=== PATIENT | male | born 1940 | race Caucasian/White ===

== ENCOUNTER 2019-07-30 21:08 | Observation (INO) ==
[2019-07-30 21:43] LABS: Basophils # 0.1 10*3/uL (0.0-0.2); Basophils % 0.6 % (0.0-0.8); Eosinophils # 0.3 10*3/uL (0.0-0.87); Eosinophils % 3.3 % (0.00-10.9); Hematocrit 43.2 VOL% (42.0-52.0); Hemoglobin 14.1 GM/DL (14.0-18.0); Immature Granulocytes % 0.3 %; Immature Granulocytes Absolute 0.02 #; Lymphocytes # 2.9 10*3/uL (1.4-4.0); Lymphocytes % 37.4 % (21.2-54.2); Mean Corpuscular HGB Conc 32.6 GM/DL (32-36); Mean Corpuscular Volume 97.7 FL (87-102); Mean Platelet Volume 11.3 FL (9.6-12.0); Monocytes % 9.3 % (1.7-12.7); Neutrophils % 49.1 % (38.7-73.9); Platelet Count 201 T/CUMM (130-400); Red Blood Count 4.42 MC/CUMM (3.8-5.5); Red Cell Distribution Width 12.1 % (9.3-17.3); White Blood Count 7.9 T/CUMM (4-12)
[2019-07-30 21:53] LABS: PT Patient Result 10.9 SECS (9.6-12.2); Partial Thromboplastin Time 26.5 SECS (20.8-36.0)
[2019-07-30 22:02] LABS: Alanine Aminotransferase 20 U/L (16-61); Albumin 3.8 G/DL (3.4-5.0); Alkaline Phosphatase 67 U/L (45-117); Aspartate Amino Transferase 12 U/L (0-37); Blood Urea Nitrogen 23 MG/DL (7-18); Calcium 8.6 MG/DL (8.5-10.1); Estimated Glom Filtration Rate 65 ML/MIN; Glucose 105 MG/DL (74-106); Osmolality,Calculated 280.5 MOS/KG (273-304); Total Protein 6.9 G/DL (6.4-8.3)
[2019-07-30] MEDS ORDERED: ASPIRIN CHEW 81 MG TABLET PO STA (22:52)
[2019-07-30] MEDS ORDERED: ZALEPLON 5 MG CAPSULE PO PRN (22:59)
[2019-07-30] MEDS ORDERED: diphenhydrAMINE CAP 25 MG CAPSULE PO PRN (22:59)
[2019-07-30] MEDS ORDERED: guaiFENesin/DM ER 600-30 MG TABLET PO PRN (22:59)
[2019-07-30] MEDS ORDERED: DOCUSATE SODIUM 100 MG CAPSULE PO PRN (22:59)
[2019-07-30] MEDS ORDERED: ONDANSETRON 4 MG/2 ML VIAL IV PRN (22:59)
[2019-07-30] MEDS ORDERED: ACETAMINOPHEN 325 MG TABLET PO PRN (22:59)
[2019-07-30] MEDS ORDERED: hydrALAZINE 20 MG/1 ML VIAL IV PRN (23:04)
[2019-07-31] MEDS: amLODIPine 5 MG TABLET PO SCH ×2 (00:45→08:02)
[2019-07-31 05:08] LABS: Apearance,Urine CLEAR (Clear); Bilirubin,Urine Negative (Negative); Blood, Urine Negative (Negative); Glucose,Urine (UA) Negative (Negative); Ketones,Urine Negative (Negative); Mucus,Urine Occasional /LPF (Occasional); Nitrite,Urine Negative (Negative); Protein,Urine Negative; RBC,Urine 1 /HPF (0-4); Urine Color Yellow (Yellow); Urine Specific Gravity 1.011 (1.001-1.035); Urine Urobilinogen < 2.0 EU/DL (0.2-1.0)
[2019-07-31 05:22] LABS: Barbiturates Screen,Urine Negative (Negative); Benzodiazepines Screen,Urine Negative (Negative); Cannabinoid Screen,Urine Negative (Negative); Opiate Screen,Urine Negative (Negative); Phencyclidine Screen,Urine Negative (Negative)
[2019-07-31 05:32] LABS: Basophils # 0.1 10*3/uL (0.0-0.2); Basophils % 0.8 % (0.0-0.8); Eosinophils # 0.3 10*3/uL (0.0-0.87); Eosinophils % 5.3 % (0.00-10.9); Hematocrit 38.3 VOL% (42.0-52.0); Hemoglobin 12.9 GM/DL (14.0-18.0); Immature Granulocytes % 0.2 %; Immature Granulocytes Absolute 0.01 #; Lymphocytes # 2.3 10*3/uL (1.4-4.0); Lymphocytes % 36.4 % (21.2-54.2); Mean Corpuscular HGB Conc 33.7 GM/DL (32-36); Mean Corpuscular Volume 94.8 FL (87-102); Mean Platelet Volume 12.5 FL (9.6-12.0); Monocytes % 9.3 % (1.7-12.7); Platelet Count 192 T/CUMM (130-400); Red Blood Count 4.04 MC/CUMM (3.8-5.5); White Blood Count 6.2 T/CUMM (4-12)
[2019-07-31 06:01] LABS: Albumin 3.4 G/DL (3.4-5.0); Bilirubin,Total 0.5 MG/DL (0.2-1.0); Calcium 8.2 MG/DL (8.5-10.1); Osmolality,Calculated 283.1 MOS/KG (273-304); Risk Ratio 2.4; Total Protein 6.2 G/DL (6.4-8.3); VLDL CHOLESTEROL 9.8 MG/DL
[2019-07-31] MEDS ORDERED: ENOXAPARIN 40 MG/0.4 ML SYRINGE SUBCUT SCH (08:00)
[2019-07-31] MEDS ORDERED: PANTOPRAZOLE 40 MG TABLET PO SCH (09:00)
[2019-07-31] MEDS ORDERED: ASPIRIN EC 325 MG TABLET PO SCH (09:00)
[2019-07-31] MEDS ORDERED: ATORVASTATIN 40 MG TABLET PO SCH (10:30)
[2019-07-31 11:30] VITALS: BP 136/70
== END 2019-07-31 14:54 | disposition home or self-care (01) ==
LOC: N.EDINP 21:08 → N.ED 21:08 → N.4E 23:45
PROVIDERS: ADMIT Internal Medicine; ATTEND Internal Medicine

== ENCOUNTER 2021-06-24 20:00 | Inpatient (IN) ==
[2021-06-24] MEDS ORDERED: ONDANSETRON 4 MG/2 ML VIAL IV STA (20:23)
[2021-06-24] MEDS ORDERED: MORPHINE 10 MG/1 ML VIAL IV STA (20:24)
[2021-06-24] MEDS ORDERED: MORPHINE 2 MG/1 ML SYRINGE ONE ×2 (20:34)
[2021-06-24] MEDS ORDERED: MORPHINE 2 MG/1 ML SYRINGE IV STA (20:39)
[2021-06-24 20:53] LABS: Basophils # 0.1 10*3/uL (0.0-0.2); Basophils % 0.4 % (0.0-0.8); Eosinophils # 0.1 10*3/uL (0.0-0.87); Eosinophils % 1.1 % (0.00-10.9); Hematocrit 36.6 VOL% (42.0-52.0); Hemoglobin 12.6 GM/DL (14.0-18.0); Immature Granulocytes % 0.5 %; Immature Granulocytes Absolute 0.06 #; Lymphocytes # 1.3 10*3/uL (1.4-4.0); Lymphocytes % 11.7 % (21.2-54.2); Mean Corpuscular HGB Conc 34.4 GM/DL (32-36); Mean Corpuscular Volume 92.7 FL (87-102); Mean Platelet Volume 11.4 FL (9.6-12.0); Monocytes % 6.7 % (1.7-12.7); Neutrophils % 79.6 % (38.7-73.9); Platelet Count 180 T/CUMM (130-400); Red Blood Count 3.95 MC/CUMM (3.8-5.5); White Blood Count 11.3 T/CUMM (4-12)
[2021-06-24 21:19] LABS: Calcium 8.8 MG/DL (8.5-10.1); Potassium 3.8 MMOL/L (3.5-5.1)
[2021-06-24] MEDS ORDERED: DEXTROSE 50% 25 GM/50 ML VIAL IV PRN (22:33)
[2021-06-24] MEDS ORDERED: GLUCAGON 1 MG VIAL IM PRN (22:33)
[2021-06-24] MEDS ORDERED: DOCUSATE SODIUM 100 MG CAPSULE PO PRN (22:33)
[2021-06-24] MEDS ORDERED: ONDANSETRON 4 MG/2 ML VIAL IV PRN (22:33)
[2021-06-25] MEDS: MORPHINE 2 MG/1 ML SYRINGE IV PRN ×5 (00:29→23:19)
[2021-06-25] MEDS: DEXTROSE 5% NACL 0.45% 1,000 ML IV SCH ×4 (00:30→23:14)
[2021-06-25 06:49] LABS: Basophils % 0.4 % (0.0-0.8); Eosinophils % 0.2 % (0.00-10.9); Hematocrit 32.5 VOL% (42.0-52.0); Hemoglobin 10.9 GM/DL (14.0-18.0); Immature Granulocytes % 0.5 %; Immature Granulocytes Absolute 0.04 #; Lymphocytes # 1.1 10*3/uL (1.4-4.0); Lymphocytes % 12.4 % (21.2-54.2); Mean Corpuscular HGB Conc 33.5 GM/DL (32-36); Mean Platelet Volume 11.6 FL (9.6-12.0); Monocytes % 8.5 % (1.7-12.7); Platelet Count 149 T/CUMM (130-400); Red Blood Count 3.42 MC/CUMM (3.8-5.5); Red Cell Distribution Width 12.1 % (9.3-17.3); White Blood Count 8.5 T/CUMM (4-12)
[2021-06-25 07:00] LABS: INR 1.1; Partial Thromboplastin Time 26.8 SECS (23.8-32.1)
[2021-06-25 07:15] LABS: Albumin 3.4 G/DL (3.4-5.0); Calcium 8.2 MG/DL (8.5-10.1); Potassium 3.6 MMOL/L (3.5-5.1)
[2021-06-25] MEDS ORDERED: INFLUENZA VIRUS VACCINE 0.5 ML SYRINGE IM ONE (08:13)
[2021-06-25] MEDS: ATORVASTATIN 10 MG TABLET PO SCH (08:46)
[2021-06-25] MEDS: amLODIPine 2.5 MG TABLET PO SCH (08:46)
[2021-06-25] MEDS ORDERED: DEXMEDETOMIDINE 200 MCG/2 ML VIAL ONE (11:29)
[2021-06-25] MEDS ORDERED: GLYCOPYRROLATE 0.4 MG/2 ML VIAL ONE (11:56)
[2021-06-25] MEDS ORDERED: SEVOFLURANE 1 UNIT/15 MINUTE INH ONE (11:56)
[2021-06-25] MEDS ORDERED: fentaNYL 100 MCG/2 ML VIAL ONE (11:56)
[2021-06-25] MEDS ORDERED: propofoL 200 MG/20 ML VIAL IV ONE (12:00)
[2021-06-25] MEDS ORDERED: LIDOCAINE 2% 5 ML VIAL ONE (12:00)
[2021-06-25] MEDS ORDERED: ETOMIDATE 40 MG/20 ML VIAL IV ONE (12:00)
[2021-06-25] MEDS ORDERED: LACTATED RINGERS 1,000 ML IV ONE (12:07)
[2021-06-25] MEDS ORDERED: ceFAZolin 1,000 MG VIAL ONE (12:08)
[2021-06-25] MEDS ORDERED: TRANEXAMIC ACID 1,000 MG/10 ML VIAL ONE (12:24)
[2021-06-25] MEDS ORDERED: PHENYLEPHRINE 1 MG/10 ML SYRINGE IV ONE ×3 (12:25→12:30)
[2021-06-25] MEDS ORDERED: ACETAMINOPHEN INJ 1,000 MG/100 ML VIAL IV ONE (12:26)
[2021-06-25] MEDS ORDERED: diphenhydrAMINE CAP 25 MG CAPSULE PO PRN (12:38)
[2021-06-25] MEDS ORDERED: MAGNESIUM HYDROXIDE SUSP 30 ML UDCUP PO PRN (12:38)
[2021-06-26 05:54] LABS: Basophils % 0.3 % (0.0-0.8); Eosinophils # 0.3 10*3/uL (0.0-0.87); Eosinophils % 2.9 % (0.00-10.9); Hematocrit 27.8 VOL% (42.0-52.0); Hemoglobin 9.3 GM/DL (14.0-18.0); Immature Granulocytes % 0.3 %; Immature Granulocytes Absolute 0.03 #; Lymphocytes # 1.2 10*3/uL (1.4-4.0); Lymphocytes % 13.6 % (21.2-54.2); Mean Corpuscular HGB Conc 33.5 GM/DL (32-36); Mean Corpuscular Volume 95.2 FL (87-102); Mean Platelet Volume 12.1 FL (9.6-12.0); Monocytes % 8.5 % (1.7-12.7); Neutrophils % 74.4 % (38.7-73.9); Platelet Count 118 T/CUMM (130-400); Red Blood Count 2.92 MC/CUMM (3.8-5.5); Red Cell Distribution Width 12.2 % (9.3-17.3); White Blood Count 8.9 T/CUMM (4-12)
[2021-06-26 06:25] LABS: Calcium 7.5 MG/DL (8.5-10.1); Osmolality,Calculated 261.7 MOS/KG (273-304); Potassium 3.5 MMOL/L (3.5-5.1)
[2021-06-26] MEDS: ATORVASTATIN 10 MG TABLET PO SCH (09:21)
[2021-06-26] MEDS: ASPIRIN EC 81 MG TABLET PO SCH (09:21)
[2021-06-26] MEDS: CLOPIDOGREL 75 MG TABLET PO SCH (09:21)
[2021-06-26] MEDS: amLODIPine 2.5 MG TABLET PO SCH (09:22)
[2021-06-26] MEDS: DEXTROSE 5% NACL 0.45% 1,000 ML IV SCH (09:22)
[2021-06-27 05:47] LABS: Basophils % 0.2 % (0.0-0.8); Eosinophils # 0.3 10*3/uL (0.0-0.87); Eosinophils % 3.1 % (0.00-10.9); Hematocrit 23.5 VOL% (42.0-52.0); Hemoglobin 7.9 GM/DL (14.0-18.0); Immature Granulocytes % 0.3 %; Immature Granulocytes Absolute 0.03 #; Lymphocytes # 1.6 10*3/uL (1.4-4.0); Lymphocytes % 18.2 % (21.2-54.2); Mean Corpuscular HGB Conc 33.6 GM/DL (32-36); Mean Corpuscular Volume 94.4 FL (87-102); Mean Platelet Volume 12.3 FL (9.6-12.0); Monocytes % 9.7 % (1.7-12.7); Neutrophils % 68.5 % (38.7-73.9); Platelet Count 118 T/CUMM (130-400); Red Blood Count 2.49 MC/CUMM (3.8-5.5); Red Cell Distribution Width 12.2 % (9.3-17.3); White Blood Count 8.6 T/CUMM (4-12)
[2021-06-27] MEDS: ATORVASTATIN 10 MG TABLET PO SCH (08:01)
[2021-06-27] MEDS: amLODIPine 2.5 MG TABLET PO SCH (08:01)
[2021-06-27] MEDS: CLOPIDOGREL 75 MG TABLET PO SCH (08:01)
[2021-06-27] MEDS: ASPIRIN EC 81 MG TABLET PO SCH (08:01)
[2021-06-27] MEDS ORDERED: SODIUM CHLORIDE 0.9% 1,000 ML IV PRN (11:10)
[2021-06-27 11:19] VITALS: BP 103/54
[2021-06-27 14:18] LABS: % Iron Saturation 6.3 % (18-50); Ferritin 60.7 ng/mL (26-388)
[2021-06-27 14:33] LABS: Folate 11.78 NG/ML (5.38-24.0)
== END 2021-06-27 12:05 | DRG 481 ==
LOC: EDBD → EDUNIT# → N.ED 20:00 → N.3E 22:33
PROVIDERS: ADMIT Internal Medicine; ATTEND Internal Medicine